=== PATIENT | female | born 1960 | race Caucasian/White ===

== ENCOUNTER 2024-09-09 10:48 | Emergency (ER) | payer OTHER, SELFPAY ==
[2024-09-09 10:53] VITALS: BP 113/56
[2024-09-09 11:22] VITALS: BP 137/101
--- NOTE | 2024-09-09 11:31 | ED.GENMED ---
History of Present Illness
General
Chief Complaint: Dizziness
Source: patient
Time Seen by Provider: 09/09/24 11:14
History of Present Illness
History of Present Illness:
63-year-old female presents to the emergency room complaining of pain in her lower left back which began yesterday. Pain is worse with movement. She was able to sleep through the night but when she woke up this morning the pain seemed worse. She
called and had a same-day appointment made with her primary care provider. while getting ready for the visit the pain was significant and she became dizzy feeling as if she might pass out. Patient does have a history of vasovagal events. She is
passed out 4 times in her life. She denies any chest pain, abdominal pain, shortness of breath, dysuria or frequency.
Phy Exam
Physical Exam
Physical Exam:
General: Awake, Alert, Oriented X3. No acute distress.
Vitals: unremarkable
Head: Atraumatic
Eyes: Pupils equal, EOMI
Throat: Airway intact, no exudates
Neck: Trachea midline
Lungs: Clear and equal b/l
Heart: Regular rate, no murmurs
Abd: Soft, Nontender, No pulsatile mass
Back: No CVA tenderness to percussion, no pain to palpation of the midline spine or paraspinal musculature. No pain with straight leg raising.
Neuro: Nonfocal
Skin: Warm, dry, no rash
Extremities: pulses equal b/l, no edema
Course
Orders/Labs/Results
Orders:
Orders
09/09/24 10:55
Electrocardiogram (*1) Urgent
Reason for Study: Vertigo / Dizzy
EKG- Treatment ONCE
09/09/24 11:30
Basic Metabolic Panel Urgent
Complete Blood Count/With Diff Urgent
Urinalysis Reflex To Culture Urgent
NSS 500mL Bolus over 30 minutes 0.9% Sodium Chloride 500 ml [Nss] 500 ml IV BOLUS
Vital Signs
Initial and Last Documented VS:
Initial Vital Signs
Temp Pulse Resp BP Pulse Ox
97.5 F 61 16 113/56 100
09/09/24 10:53 09/09/24 10:53 09/09/24 10:53 09/09/24 10:53 09/09/24 10:53
Last Documented Vital Signs
Temp Pulse Resp BP Pulse Ox
97.5 F 61 16 113/56 100
09/09/24 10:53 09/09/24 10:53 09/09/24 10:53 09/09/24 10:53 09/09/24 10:53
*EKG
Interpreted by ED Provider?: Yes
Heart Rate: 58
Rate: bradycardiac
Rhythm: sinus
[place]: normal axis
Interval: normal interval
QRS Pattern: normal QRS
Ischemia: no ischemia
*Accounts Receivable Clerk Interpretation
Rate: bradycardiac
Interpretation: normal
Rhythm: sinus
*Critical Care Note
Total Time (30-74mins, 75-104mins- exclusive of procedures): Not Applicable
ED Attending Note
-
Portions of this chart may have been created with voice recognition software.� Occasional wrong word or��sound alike� substitutions may have occurred due to the inherent limitations of voice recognition software.
Discharge Plan
Departure
Prescriptions:
No Action
alendronate [Fosamax] 40 MG tablet
40 mg PO DIRECTED
Patient Comments:
every friday
calcium carbonate [Calcium 500] 500 MG tablet,chewable
600 mg PO DAILY AT 0700
albuterol sulfate 1 PUFF HFA aerosol inhaler
1 puff inhalation PRN PRN (Reason: wheezing )
fluticasone propionate 1 SPRAY spray,suspension
1 inh intranasal BID
Interventions
Interventions:
*Risk Screen - Suicide Last Done: 09/09/24 10:55
*Neglect/Abuse Screening Last Done: 09/09/24 10:55
Discharge Date and Time
Print Language: MALTESE
[2024-09-09] MEDS: TORADOL 15 MG IV (11:47)
[2024-09-09] MEDS: NSS 500 IV (11:47)
[2024-09-09 12:00] VITALS: BP 109/53
[2024-09-09 12:03] LABS: % Basophils 0.4 % (0-2); % Eosinophils 0.2 % (0-6); % Immature Granulocytes 0.2 % (0-0.5); % Lymphocytes 9.8 % (20.5-51.1); % Monocytes 5.5 % (1.7-9.3); % Neutrophils 83.9 % (42.2-75.2); Absolute Lymphocytes 1.1 10^3/uL (1.2-3.4); Absolute Monocytes 0.6 10^3/uL (0.1-0.6); Hematocrit 39.3 % (37.0-47.0); Hemoglobin 13.3 g/dL (12.0-16.0); Mean Corp Hgb Conc. 33.8 g/dL (33.0-37.0); Mean Corpuscular Hgb 30.6 pg (27.0-31.0); Mean Corpuscular Volume 90.6 fL (81.0-99.0); Mean Platelet Volume 10.3 fL (7.4-10.4); Nucleated Red Blood Cells % 0 %; Platelet Count 189 10^3/uL (130-400); Red Blood Cell Count 4.34 10^6/uL (4.20-5.40); Red Cell Dist. Width 12.2 % (11.5-14.5); White Blood Cell Count 10.7 10^3/uL (4.8-10.8)
[2024-09-09 12:14] LABS: Blood Urea Nitrogen 26 mg/dl (7-17); Calcium 10.1 mg/dl (8.4-10.2); Carbon Dioxide 27 mmol/L (22-30); Chloride 104 mmol/L (98-107); Glucose 110 mg/dl (70-99); Potassium 4.1 mmol/L (3.5-5.1); Sodium 137 mmol/L (135-145); eGFR > 60.00
[2024-09-09 13:36] LABS: Urine Albumin Negative (Neg - Trace); Urine Bilirubin Negative (Negative); Urine Character Clear (Clear); Urine Color Yellow; Urine Glucose Negative (Negative); Urine Ketone Negative (Negative); Urine Leukocyte Negative (Negative); Urine Nitrite Negative (Negative); Urine Occult Blood Negative (Negative); Urine Urobilinogen Negative (Neg - 1+)
--- NOTE | 2024-09-10 13:18 | ED.GENMED ---
History of Present Illness
General
Chief Complaint: Dizziness
Time Seen by Provider: 09/09/24 11:14
Course
Orders/Labs/Results
Orders:
Orders
09/09/24 10:55
Electrocardiogram (*1) Urgent
Reason for Study: Vertigo / Dizzy
EKG- Treatment ONCE
09/09/24 11:30
0.9% Sodium Chloride 500 ml [Nss] 500 ml IV BOLUS
09/09/24 11:34
Ketorolac [Toradol] 15 mg IV NOW STA
09/09/24 11:49
Basic Metabolic Panel Urgent
Complete Blood Count/With Diff Urgent
09/09/24 13:13
Urinalysis Reflex To Culture Urgent
Date Specimen was Collected: 09/09/24
Time Specimen was Collected: 12:39
09/09/24 14:04
Lumbar Spine Complete, 4 View [CR Lumbar Spine Comp Min 4 Vw*] Urgent
Comment:
Reason For Exam: low back pain
Abnormal Lab Results
09/09/24
11:49
Absolute Neuts (auto) 9.0 H 10^3/uL
(1.4-6.5)
Absolute Lymphs (auto) 1.1 L 10^3/uL
(1.2-3.4)
Neutrophils % 83.9 H %
(42.2-75.2)
Lymphocytes % 9.8 L %
(20.5-51.1)
BUN 26 H mg/dl
(7-17)
Glucose 110 H mg/dl
(70-99)
09/09/24 11:49
09/09/24 11:49
Vital Signs
Initial and Last Documented VS:
Initial Vital Signs
Temp Pulse Resp BP Pulse Ox
97.5 F 61 16 113/56 100
09/09/24 10:53 09/09/24 10:53 09/09/24 10:53 09/09/24 10:53 09/09/24 10:53
Last Documented Vital Signs
Temp Pulse Resp BP Pulse Ox
97.5 F 61 16 109/53 98
09/09/24 10:53 09/09/24 14:50 09/09/24 14:50 09/09/24 12:00 09/09/24 14:50
ED Attending Note
-
Portions of this chart may have been created with voice recognition software.� Occasional wrong word or��sound alike� substitutions may have occurred due to the inherent limitations of voice recognition software.
Discharge Plan
Departure
Patient Disposition: Home (Routine Discharge)
Date of Disposition: 09/09/24
Time of Disposition: 14:02
Patient with high blood pressure during this ER visit?: No
Condition: Good
Discharge Problem:
Vasovagal near syncope, Low back strain
Instructions: Low back pain in adults, Vasovagal Response (DC)
Prescriptions:
New
metaxalone 800 mg tablet
800 mg PO TID PRN (Reason: muscle pain) Qty: 20 0RF
No Action
alendronate [Fosamax] 40 MG tablet
40 mg PO DIRECTED
Patient Comments:
every friday
calcium carbonate [Calcium 500] 500 MG tablet,chewable
600 mg PO DAILY AT 0700
albuterol sulfate 1 PUFF HFA aerosol inhaler
1 puff inhalation PRN PRN (Reason: wheezing )
fluticasone propionate 1 SPRAY spray,suspension
1 inh intranasal BID
Referrals:
Lambert Dao PA [Family Provider] -
Interventions
Interventions:
*Risk Screen - Suicide Last Done: 09/09/24 10:55
*General Assessment Last Done: 09/09/24 14:02
*Neglect/Abuse Screening Last Done: 09/09/24 10:55
*ED- Fall Risk Assessment Last Done: 09/09/24 14:02
*ED COVID-19 Vaccine History Last Done: 09/09/24 14:02
*Nursing Disposition Last Done: 09/09/24 14:50
ED- Neurological Assessment Last Done: 09/09/24 14:02
Discharge Date and Time
Discharge Date/Time: 09/09/24 14:52
Print Language: PAKISTANI
== END 2024-09-09 14:52 | disposition home or self-care (01) ==
LOC: EMR 10:48
PROVIDERS: EMERGENCY PHYSICIAN Emergency Medicine; FAMILY PHYSICIAN Physician Assistant Medical
DX: R55 Syncope and collapse (principal); S39.012A Strain of muscle, fascia and tendon of lower back, initial encounter; X58.XXXA Exposure to other specified factors, initial encounter
CPT/HCPCS: 96374; 96361; 99284; 72110; 80048; 81003; 85025; 93005